=== PATIENT | male | born 1945 | race Caucasian/White ===

== ENCOUNTER 2022-02-06 07:59 | Emergency (ER) | payer MEDICAID ==
[~2022-02-06] VITALS: Ht 160 cm; Wt 81.6 kg
[2022-02-06 08:27] VITALS: BP_SYST 138
--- NOTE | 2022-02-06 08:29 | NUR ---
Triaged pt and placed in waiting room until bed becomes available. Pt c/o having blurred vision and lower back of head pain 5/10 non-radiating intermittent. Pt is A&Ox4. Skin intact. No trauma. VSS. Ambulatory with steady gait. Family dropped pt off from home. Denies n/v. No chest pain and no sob. Has hx of HTN, Hyperlipidemia, and Prostate issues. NKA.
--- NOTE | 2022-02-06 08:58 | NUR ---
ER in triage room examining patient.
--- NOTE | 2022-02-06 09:08 | NUR ---
polysomnography technician in triage room with pt drawing labs.
[2022-02-06 09:32] LABS: ANION GAP 8 (5-15); CALCIUM 8.6 mg/dL (8.4-11.0); CHLORIDE 103 mmol/L (98-107); CREATININE 1.53 mg/dL (0.55-1.30); GLUCOSE 165 mg/dL (70-99); POTASSIUM 3.9 mmol/L (3.5-5.1); SODIUM SERUM 138 mmol/L (136-145); UREA NITROGEN, BLOOD 33 mg/dL (8-21)
[2022-02-06 09:38] LABS: ALANINE AMINOTRANSFERASE 29 U/L (12-78); ALBUMIN 3.3 g/dL (3.4-4.8); ASPARTATE AMINOTRANSFERASE 14 U/L (10-37); TOTAL BILIRUBIN 0.5 mg/dL (0.0-1.0)
[2022-02-06 09:48] LABS: BASOPHILS % (AUTO) 0.7 % (0.0-2.0); EOSINOPHILS # (AUTO) 0.2 K/uL (0.0-0.4); HEMATOCRIT 41.2 % (36-54); LYMPHOCYTES # (AUTO) 1.5 K/uL (1.0-5.5); LYMPHOCYTES % (AUTO) 23.7 % (20.5-51.5); MEAN CORPUSCULAR HEMOGLOBIN 32 pg (27-31); MEAN CORPUSCULAR HGB CONC 34 % (32-36); MEAN CORPUSCULAR VOLUME 95 fL (79.0-98.0); MONOCYTES # (AUTO) 0.6 K/uL (0.0-1.0); MONOCYTES % (AUTO) 8.9 % (1.7-9.3); NEUTROPHILS % (AUTO) 63.7 % (40.0-70.0); PLATELET COUNT (AUTO) 224 K/uL (130-430); RED BLOOD CELL COUNT(AUTO) 4.36 MIL/uL (4.2-6.2); RED CELL DISTRIBUTION WIDTH 13.1 % (9.0-15.0); WHITE BLOOD COUNT (AUTO) 6.3 K/uL (4.8-10.8)
[2022-02-06] MEDS ORDERED: METOCLOPRAMIDE HCL 10 MG TABLET PO ONE (12:15)
[2022-02-06] MEDS ORDERED: KETOROLAC TROMETHAMINE 30 MG VIAL IM ONE (12:15)
[2022-02-06 14:25] VITALS: BP_SYST 138
--- NOTE | 2022-02-06 14:26 | NUR ---
Patient given written and verbal discharge instructions and verbalizes understanding. ER MD discussed with patient the results and treatment provided. Patient in stable condition. ID arm band removed. No Rx given. Patient educated on pain management and to follow up with PMD. Pain Scale 2/10. Opportunity for questions provided and answered. Medication side effect fact sheet provided.
== END 2022-02-06 14:25 | disposition home or self-care (01) ==
LOC: SED 07:59
DX: R51.9 Headache, unspecified (principal); N17.9 Acute kidney failure, unspecified
CPT/HCPCS: 99285; 70496; 80053; 85025; 36415; 70498; 96372; 70450; 76376; J8597; J1885; Q9967

== ENCOUNTER 2022-10-30 15:13 | Inpatient (IN) | payer MEDICAID ==
[~2022-10-30] VITALS: Ht 162.6 cm; Wt 79.8 kg
--- NOTE | 2022-10-30 15:26 | NUR ---
Patient to ER bed 07 to gown for evaluation. Side rails up.
[2022-10-30 15:27] VITALS: BP_SYST 172
--- NOTE | 2022-10-30 15:42 | NUR ---
PT COMES IN FROM HOME WALKING WITH C/O LEFT LOWER ABD PAIN, STATES HE HAS HAD A HERNIA BEFORE. ALSO C/O MILD NAUSEA/NO VOMITTING; NO FEVERS.
--- NOTE | 2022-10-30 15:51 | NUR ---
DR POLLARD IN ROOM FOR EXAM
[2022-10-30 16:18] LABS: BASOPHILS % (AUTO) 0.2 % (0.0-2.0); EOSINOPHILS % (AUTO) 0.3 % (0.0-4.0); HEMATOCRIT 41.5 % (36-54); HEMOGLOBIN 14.1 g/dL (14.0-18.0); LYMPHOCYTES # (AUTO) 0.9 K/uL (1.0-5.5); LYMPHOCYTES % (AUTO) 5.6 % (20.5-51.5); MEAN CORPUSCULAR HEMOGLOBIN 32 pg (27-31); MEAN CORPUSCULAR HGB CONC 34 % (32-36); MEAN CORPUSCULAR VOLUME 94 fL (79.0-98.0); MONOCYTES # (AUTO) 1.4 K/uL (0.0-1.0); MONOCYTES % (AUTO) 8.5 % (1.7-9.3); NEUTROPHILS # (AUTO) 13.9 K/uL (1.8-7.7); NEUTROPHILS % (AUTO) 85.4 % (40.0-70.0); PLATELET COUNT (AUTO) 222 K/uL (130-430); RED BLOOD CELL COUNT(AUTO) 4.39 MIL/uL (4.2-6.2); RED CELL DISTRIBUTION WIDTH 15.1 % (9.0-15.0); WHITE BLOOD COUNT (AUTO) 16.3 K/uL (4.8-10.8)
[2022-10-30 16:21] LABS: BILIRUBIN,URINE NEGATIVE (NEGATIVE); BLOOD, URINE NEGATIVE (NEGATIVE); CLARITY/URINE CLEAR (CLEAR); COLOR,URINE YELLOW (YELLOW); GLUCOSE,URINE NEGATIVE (NEGATIVE); KETONES,URINE NEGATIVE (NEGATIVE); LEUKOCYTE ESTERASE ,URINE TRACE (NEGATIVE); NITRITE, URINE NEGATIVE (NEGATIVE); PROTEIN URINE NEGATIVE (NEGATIVE); UROBILINOGEN,URINE 0.2 (0.2-1.0)
[2022-10-30 16:24] LABS: ANION GAP 11 (5-15); CALCIUM 8.9 mg/dL (8.4-11.0); CHLORIDE 103 mmol/L (98-107); CREATININE 1.76 mg/dL (0.55-1.30); GLUCOSE 142 mg/dL (70-99); UREA NITROGEN, BLOOD 33 mg/dL (8-21)
[2022-10-30 16:28] LABS: ALANINE AMINOTRANSFERASE 22 U/L (12-78); ALBUMIN 3.8 g/dL (3.4-4.8); AMYLASE 106 U/L (0-100); ASPARTATE AMINOTRANSFERASE 17 U/L (10-37); C-REACTIVE PROTEIN QUANT < 0.2 mg/dL (0-0.5); LIPASE 235 U/L (73-393); TOTAL BILIRUBIN 0.5 mg/dL (0.0-1.0)
[2022-10-30 16:51] LABS: BACTERIA,URINE FEW /HPF (None Seen); RBC,URINE 0-3 /HPF (0-3)
[2022-10-30 16:52] LABS: MUCUS,URINE None Seen /LPF (None Seen)
[2022-10-30] MEDS ORDERED: NACL 0.9% 1,000 ML IV ONE (17:15)
[2022-10-30] MEDS ORDERED: PIPERACILLIN/TAZO 3.375 GM in NS 50 ML IV ONE (17:15)
[2022-10-30] MEDS ORDERED: PIPERACILLIN/TAZOBACTAM 3.375 GM/VIAL (ZOSYN) IV ONE (17:28)
[2022-10-30] MEDS ORDERED: MORPHINE 2 MG/ML INJ. SYRINGE IVP ONE (17:45)
[2022-10-30] MEDS ORDERED: iohexoL 350 mgI/mL, 100 ML INFUS..BTL IV ONE (17:48)
[2022-10-30] MEDS ORDERED: AMLO10TA88 PO (17:49)
[2022-10-30] MEDS ORDERED: FINA5TAB11 PO (17:49)
[2022-10-30] MEDS ORDERED: BENA40TA89 PO (17:49)
[2022-10-30] MEDS ORDERED: HYDR100T25 PO (17:49)
[2022-10-30] MEDS ORDERED: HYDR25TA4 PO (17:49)
--- NOTE | 2022-10-30 18:01 | NUR ---
PT DRINKING ORAL CONTRAST, INFORMED TO DRINK OVER 2 HRS.
--- NOTE | 2022-10-30 18:11 | NUR ---
MEDICTAED ORDERED, WILL CONT TO MONITOR. VSS.
--- NOTE | 2022-10-30 18:57 | NUR ---
PT WITH EYES CLOSED IN NAD, RESP EVEN AND UNLABORED, ON RA @95%
--- NOTE | 2022-10-30 19:05 | NUR ---
SHANNON COLLECTED AND SENT TO LAB
--- NOTE | 2022-10-30 19:50 | NUR ---
Admit bed requested Patient will be admitted to care of Dr ANTUNEZ Admitted to TELE unit. Diagnosis LEUKOCYTOSIS INGUINAL ULCER Inpatient (Yes or No) YES Observation (Yes or No) NO Orientation concerns or request close to nursing station (Yes or No) NO Covid Status PENDING On vent or bipap NO Isolation requirements PENDING Needs a sitter NO From Home (Yes or if No enter name of facility) HOME Requires Dialysis (Yes or No) NO Med Rec Completed (Yes of No) NO
--- NOTE | 2022-10-30 20:31 | NUR ---
pt bp elevatd. per md give clonidine 0.1mg and home meds
[2022-10-30] MEDS ORDERED: hydrALAZINE HCL 25 MG TABLET PO ONE (21:00)
[2022-10-30] MEDS ORDERED: amLODIPine BESYLATE 10 MG TABLET PO ONE (21:00)
[2022-10-30] MEDS ORDERED: cloNIDine HCL 0.1 MG TABLET PO PRN (21:00)
--- NOTE | 2022-10-30 22:03 | NUR ---
pt c/o pain. md notified
[2022-10-30] MEDS ORDERED: ACETAMINOPHEN 325 MG TABLET PO PRN (22:15)
[2022-10-30] MEDS ORDERED: HYDROcodone/ACETAMIN 5-325 MG TAB (NORCO/ VICODIN) PO PRN (22:15)
[2022-10-30 23:00] VITALS: BP_SYST 156
[2022-10-30] MEDS ORDERED: LORazepam 2 MG/ML VIAL IVP PRN (23:00)
[2022-10-30] MEDS: D5/0.45 NS 1,000 ML IV SCH (23:00)
[2022-10-30] MEDS ORDERED: ONDANSETRON HCL 4 MG/2 ML VIAL IVP PRN (23:00)
[2022-10-31] VITALS (10 sets, daily range): BP systolic 115–166
--- NOTE | 2022-10-31 05:07 | NUR ---
CONSULTATION PAGED REASON FOR CONSULTATION: LEUKOCYTOSIS WAS CONSULT CALLED? Y PERSON WHO WAS NOTIFIED: NITZA CONSULTING PHYSICIAN: DR. HARTLEY COACH DRIVER SPECIALTY: ID COACH DRIVER PHONE NUMBER: REQUESTING PHYSICIAN: DR. ANTUNEZ
--- NOTE | 2022-10-31 05:08 | NUR ---
CONSULTATION PAGED REASON FOR CONSULTATION: INGUINAL HERNIA WAS CONSULT CALLED? Y PERSON WHO WAS NOTIFIED: NITZA CONSULTING PHYSICIAN: DR. ESPOSITO REPACK ROOM WORKER SPECIALTY: SURGEON REPACK ROOM WORKER PHONE NUMBER: REQUESTING PHYSICIAN: DR. ANTUNEZ
[2022-10-31 06:22] LABS: BASOPHILS % (AUTO) 0.2 % (0.0-2.0); EOSINOPHILS # (AUTO) 0.1 K/uL (0.0-0.4); EOSINOPHILS % (AUTO) 0.4 % (0.0-4.0); HEMATOCRIT 38.7 % (36-54); HEMOGLOBIN 12.9 g/dL (14.0-18.0); LYMPHOCYTES # (AUTO) 1.5 K/uL (1.0-5.5); LYMPHOCYTES % (AUTO) 9.8 % (20.5-51.5); MEAN CORPUSCULAR HEMOGLOBIN 31 pg (27-31); MEAN CORPUSCULAR HGB CONC 33 % (32-36); MEAN CORPUSCULAR VOLUME 94 fL (79.0-98.0); MONOCYTES # (AUTO) 1.9 K/uL (0.0-1.0); MONOCYTES % (AUTO) 12.6 % (1.7-9.3); NEUTROPHILS # (AUTO) 11.8 K/uL (1.8-7.7); PLATELET COUNT (AUTO) 199 K/uL (130-430); RED BLOOD CELL COUNT(AUTO) 4.13 MIL/uL (4.2-6.2); RED CELL DISTRIBUTION WIDTH 14.5 % (9.0-15.0); WHITE BLOOD COUNT (AUTO) 15.3 K/uL (4.8-10.8)
[2022-10-31 06:32] LABS: ALANINE AMINOTRANSFERASE 1 U/L (12-78); ALBUMIN 3.1 g/dL (3.4-4.8); ANION GAP 9 (5-15); ASPARTATE AMINOTRANSFERASE 14 U/L (10-37); CALCIUM 8.3 mg/dL (8.4-11.0); CHLORIDE 103 mmol/L (98-107); GLUCOSE 102 mg/dL (70-99); PHOSPHORUS 2.2 mg/dL (2.7-4.5); TOTAL BILIRUBIN 0.9 mg/dL (0.0-1.0); UREA NITROGEN, BLOOD 22 mg/dL (8-21)
[2022-10-31] MEDS: HYDROcodone/ACETAMIN 10-325 MG TAB PO PRN (06:32)
[2022-10-31] MEDS: lisinopriL 20 MG TABLET PO SCH ×2 (10:41→21:39)
[2022-10-31] MEDS: HYDROCHLOROTHIAZIDE 25 MG TABLET (HCTZ) PO SCH (10:41)
[2022-10-31] MEDS: FINASTERIDE 5 MG TABLET (PROSCAR) PO SCH (10:41)
[2022-10-31] MEDS: amLODIPine BESYLATE 10 MG TABLET PO SCH (10:42)
[2022-10-31] MEDS: D5/0.45 NS 1,000 ML IV SCH ×2 (10:43→14:40)
[2022-10-31] MEDS: hydrALAZINE HCL 25 MG TABLET PO SCH ×3 (10:43→21:34)
[2022-10-31] MEDS: metroNIDAZOLE 250 mg/NS 50 ML IV SCH ×2 (14:39→21:32)
--- NOTE | 2022-10-31 20:00 | NUR ---
RECIEVED PT FROM am NURSE. PT IS AOX4, BRP. HAS PAINFUL URINATION, WITH LOWER ABDOMINAL PAIN. PT IS AWAITING TO SEE IF HE IS A CANDIDATE FOR SX PER MD. HR SUSTAINED IN 100S. WILL CONTINUE TO MONITOR. WILL ENDORSE TO THE NURSE
[2022-10-31] MEDS: PIPERACILLIN/TAZO 3.375/DEX-IS 50 ML IV SCH (22:51)
[2022-11-01] MEDS: D5/0.45 NS 1,000 ML IV SCH ×3 (03:07→21:38)
[2022-11-01] MEDS: metroNIDAZOLE 250 mg/NS 50 ML IV SCH ×3 (06:26→21:39)
[2022-11-01 07:44] LABS: BASOPHILS % (AUTO) 0.3 % (0.0-2.0); EOSINOPHILS # (AUTO) 0.1 K/uL (0.0-0.4); EOSINOPHILS % (AUTO) 0.5 % (0.0-4.0); HEMATOCRIT 39.6 % (36-54); HEMOGLOBIN 13.4 g/dL (14.0-18.0); LYMPHOCYTES # (AUTO) 1.3 K/uL (1.0-5.5); LYMPHOCYTES % (AUTO) 8.7 % (20.5-51.5); MEAN CORPUSCULAR HEMOGLOBIN 32 pg (27-31); MEAN CORPUSCULAR HGB CONC 34 % (32-36); MEAN CORPUSCULAR VOLUME 93 fL (79.0-98.0); MONOCYTES # (AUTO) 1.6 K/uL (0.0-1.0); MONOCYTES % (AUTO) 10.9 % (1.7-9.3); NEUTROPHILS # (AUTO) 11.6 K/uL (1.8-7.7); NEUTROPHILS % (AUTO) 79.6 % (40.0-70.0); PLATELET COUNT (AUTO) 207 K/uL (130-430); RED BLOOD CELL COUNT(AUTO) 4.24 MIL/uL (4.2-6.2); RED CELL DISTRIBUTION WIDTH 14.4 % (9.0-15.0); WHITE BLOOD COUNT (AUTO) 14.6 K/uL (4.8-10.8)
[2022-11-01 07:58] LABS: ANION GAP 7 (5-15); C-REACTIVE PROTEIN QUANT 13.5 mg/dL (0-0.5); CALCIUM 8.4 mg/dL (8.4-11.0); CHLORIDE 100 mmol/L (98-107); CREATININE 1.39 mg/dL (0.55-1.30); GLUCOSE 118 mg/dL (70-99); UREA NITROGEN, BLOOD 18 mg/dL (8-21)
[2022-11-01 08:23] VITALS: BP_SYST 117
[2022-11-01] MEDS: hydrALAZINE HCL 25 MG TABLET PO SCH ×3 (08:33→21:37)
[2022-11-01] MEDS: PIPERACILLIN/TAZO 3.375/DEX-IS 50 ML IV SCH ×3 (08:33→22:23)
[2022-11-01] MEDS: amLODIPine BESYLATE 10 MG TABLET PO SCH (08:34)
[2022-11-01] MEDS: FINASTERIDE 5 MG TABLET (PROSCAR) PO SCH (08:34)
[2022-11-01] MEDS: HYDROCHLOROTHIAZIDE 25 MG TABLET (HCTZ) PO SCH (08:34)
[2022-11-01] MEDS: lisinopriL 20 MG TABLET PO SCH ×2 (08:35→21:36)
[2022-11-01 08:55] LABS: ERYTHROCYTE SEDIMENTATION RATE 53 MM/HR (0-15)
[2022-11-01] MEDS ORDERED: TAMSULOSIN HCL 0.4 MG CAP PO ONE (11:00)
[2022-11-01 12:15] VITALS: BP_SYST 117
--- NOTE | 2022-11-01 12:29 | NUR ---
Dietitian Recommendations * Continue regular diet * Consider Logan FELIX, for sepsis GS, MPH, RD Please refer to RD Assessment for further details. Thanks! Addendum: 11/01/22 at [address] Amended: Links added.
[2022-11-01 14:02] VITALS: BP_SYST 111
[2022-11-01 17:04] VITALS: BP_SYST 128
[2022-11-01 19:55] VITALS: BP_SYST 100; BP_SYST 132
--- NOTE | 2022-11-01 19:55 | NUR ---
RECEIVED PT LYING IN BED. FAMILY MEMBER AT BEDSIDE, PT IS AOX4, BRP. NO C/O PAIN ATT, IVF ONGOING TO LAC W/O INFILTRATION, WILL CONTINUE WITH POC
--- NOTE | 2022-11-01 20:35 | NUR ---
RECEIVED A CALL FROM DR. VAIBHAV GONZALEZ ORDERED CBC IN AM AND TO LET DR ANTUNEZ KNOW HE DOES NOT NEED TO CONSULT WITH PT.
[2022-11-02 01:02] VITALS: BP_SYST 121
[2022-11-02] MEDS: metroNIDAZOLE 250 mg/NS 50 ML IV SCH ×3 (05:31→22:54)
[2022-11-02] MEDS: D5/0.45 NS 1,000 ML IV SCH ×2 (06:20→12:56)
[2022-11-02] MEDS: PIPERACILLIN/TAZO 3.375/DEX-IS 50 ML IV SCH (06:25)
[2022-11-02 06:36] LABS: BASOPHILS % (AUTO) 0.4 % (0.0-2.0); EOSINOPHILS # (AUTO) 0.3 K/uL (0.0-0.4); EOSINOPHILS % (AUTO) 2.8 % (0.0-4.0); HEMATOCRIT 39.1 % (36-54); HEMOGLOBIN 13.1 g/dL (14.0-18.0); LYMPHOCYTES # (AUTO) 1.3 K/uL (1.0-5.5); LYMPHOCYTES % (AUTO) 13.1 % (20.5-51.5); MEAN CORPUSCULAR HEMOGLOBIN 32 pg (27-31); MEAN CORPUSCULAR HGB CONC 34 % (32-36); MEAN CORPUSCULAR VOLUME 94 fL (79.0-98.0); MONOCYTES # (AUTO) 1.4 K/uL (0.0-1.0); MONOCYTES % (AUTO) 13.7 % (1.7-9.3); PLATELET COUNT (AUTO) 210 K/uL (130-430); RED BLOOD CELL COUNT(AUTO) 4.15 MIL/uL (4.2-6.2); RED CELL DISTRIBUTION WIDTH 14.9 % (9.0-15.0); WHITE BLOOD COUNT (AUTO) 10.1 K/uL (4.8-10.8)
--- NOTE | 2022-11-02 06:40 | NUR ---
PT LYING IN BED. PT IS AOX4, BRP but did not get oob during shift, . NO C/O PAIN ATT, IVF d5 1/2ns at 100 ONGOING TO [facility] W/O INFILTRATION, NO CHANGES DURING SHIFT, SAFETY PREC MAINTAINED, WILL ENDORSE TO AM SHIFT
[2022-11-02 06:58] LABS: ERYTHROCYTE SEDIMENTATION RATE 27 MM/HR (0-15)
--- NOTE | 2022-11-02 07:15 | NUR ---
OPENING NOTE RECEIVED SBAR FROM NIGHT RN. PATIENT IN BED, RESPIRATIONS EVEN, NON LABORED, BED IN LOW AND LOCKED POSITION CALL LIGHT WITHIN REACH. BED ALARM ON
[2022-11-02 07:24] LABS: ALANINE AMINOTRANSFERASE 17 U/L (12-78); ALBUMIN 2.7 g/dL (3.4-4.8); ANION GAP 6 (5-15); ASPARTATE AMINOTRANSFERASE 14 U/L (10-37); C-REACTIVE PROTEIN QUANT 8.2 mg/dL (0-0.5); CALCIUM 8.1 mg/dL (8.4-11.0); CHLORIDE 102 mmol/L (98-107); GLUCOSE 103 mg/dL (70-99); PHOSPHORUS 2.6 mg/dL (2.7-4.5); TOTAL BILIRUBIN 0.6 mg/dL (0.0-1.0); UREA NITROGEN, BLOOD 21 mg/dL (8-21)
[2022-11-02 08:00] VITALS: BP_SYST 103
[2022-11-02] MEDS: FINASTERIDE 5 MG TABLET (PROSCAR) PO SCH (08:57)
[2022-11-02] MEDS: TAMSULOSIN HCL 0.4 MG CAP PO SCH (08:57)
[2022-11-02] MEDS: hydrALAZINE HCL 25 MG TABLET PO SCH ×3 (08:59→22:52)
[2022-11-02] MEDS: HYDROCHLOROTHIAZIDE 25 MG TABLET (HCTZ) PO SCH (08:59)
[2022-11-02] MEDS: amLODIPine BESYLATE 10 MG TABLET PO SCH (09:00)
[2022-11-02] MEDS: lisinopriL 20 MG TABLET PO SCH ×2 (09:00→22:53)
[2022-11-02 12:58] VITALS: BP_SYST 126
--- NOTE | 2022-11-02 13:29 | NUR ---
nurse note patient in bed, respirations even, non labored, bed in low and locked position, call light within reach. Denies pain or discomfort
--- NOTE | 2022-11-02 14:33 | NUR ---
pharmacy spoke with Carmel in the pharmacy regarding rate of Zosyn. Per Carmel disregard the rate on the label and she will put in new rate in the computer
[2022-11-02] MEDS ORDERED: PIPERACILLIN/TAZOBACTAM 3.375 GM/ D5W 50 ML IV ONE ×2 (15:00)
--- NOTE | 2022-11-02 15:21 | NUR ---
O2 on room air patient saturation is 88-89% Addendum: 11/02/22 at 1638 by Shaquille Truong RN disregard above note. entered on wrong patient
--- NOTE | 2022-11-02 16:39 | NUR ---
nurse note patient in bed, respirations even, non labored, bed in low and locked position call light within reach. no signs of distress noted.
[2022-11-02 16:59] VITALS: BP_SYST 119
--- NOTE | 2022-11-02 19:21 | NUR ---
closing note Provided SBAR to night RN. Patient in bed, respirations even, non labored, bed in low and locked position, call light within reach. IVF's running as ordered. Endorsed care to night RN.
[2022-11-02 20:00] VITALS: BP_SYST 145
[2022-11-02] MEDS: PIPERACILLIN/TAZOBACTAM 3.375 GM/ D5W 50 ML IV SCH ×2 (22:55)
[2022-11-02] MEDS: HYDROcodone/ACETAMIN 10-325 MG TAB PO PRN (23:18)
[2022-11-03 00:17] VITALS: BP_SYST 135
[2022-11-03] MEDS: D5/0.45 NS 1,000 ML IV SCH (05:31)
[2022-11-03] MEDS: PIPERACILLIN/TAZOBACTAM 3.375 GM/ D5W 50 ML IV SCH ×2 (05:32)
[2022-11-03] MEDS: metroNIDAZOLE 250 mg/NS 50 ML IV SCH (05:32)
[2022-11-03 06:34] LABS: BASOPHILS # (AUTO) 0.1 K/uL (0.0-0.2); BASOPHILS % (AUTO) 0.9 % (0.0-2.0); EOSINOPHILS # (AUTO) 0.4 K/uL (0.0-0.4); EOSINOPHILS % (AUTO) 5.7 % (0.0-4.0); HEMATOCRIT 38.4 % (36-54); HEMOGLOBIN 12.9 g/dL (14.0-18.0); LYMPHOCYTES # (AUTO) 1.5 K/uL (1.0-5.5); LYMPHOCYTES % (AUTO) 23.1 % (20.5-51.5); MEAN CORPUSCULAR HEMOGLOBIN 32 pg (27-31); MEAN CORPUSCULAR HGB CONC 34 % (32-36); MEAN CORPUSCULAR VOLUME 94 fL (79.0-98.0); MONOCYTES # (AUTO) 0.9 K/uL (0.0-1.0); MONOCYTES % (AUTO) 14.8 % (1.7-9.3); NEUTROPHILS # (AUTO) 3.5 K/uL (1.8-7.7); NEUTROPHILS % (AUTO) 55.5 % (40.0-70.0); PLATELET COUNT (AUTO) 225 K/uL (130-430); RED CELL DISTRIBUTION WIDTH 14.7 % (9.0-15.0); WHITE BLOOD COUNT (AUTO) 6.3 K/uL (4.8-10.8)
[2022-11-03 06:43] LABS: ANION GAP 6 (5-15); C-REACTIVE PROTEIN QUANT 3.8 mg/dL (0-0.5); CALCIUM 8.4 mg/dL (8.4-11.0); CHLORIDE 103 mmol/L (98-107); CREATININE 1.46 mg/dL (0.55-1.30); GLUCOSE 92 mg/dL (70-99); UREA NITROGEN, BLOOD 20 mg/dL (8-21)
[2022-11-03 06:51] LABS: ERYTHROCYTE SEDIMENTATION RATE 42 MM/HR (0-15)
--- NOTE | 2022-11-03 07:20 | NUR ---
Report received from pm nurse. Patient resting quietly in bed. No noted distress. Denies pain or needs. Call light in reach. IV in place and patent. Sinus rhythm on telemetry.
[2022-11-03 08:49] VITALS: BP_SYST 108
[2022-11-03] MEDS: TAMSULOSIN HCL 0.4 MG CAP PO SCH (08:55)
[2022-11-03] MEDS: FINASTERIDE 5 MG TABLET (PROSCAR) PO SCH (08:55)
[2022-11-03 08:56] VITALS: BP_SYST 131
[2022-11-03] MEDS: lisinopriL 20 MG TABLET PO SCH (08:58)
[2022-11-03] MEDS: hydrALAZINE HCL 25 MG TABLET PO SCH (08:59)
[2022-11-03] MEDS: HYDROCHLOROTHIAZIDE 25 MG TABLET (HCTZ) PO SCH (08:59)
[2022-11-03] MEDS: amLODIPine BESYLATE 10 MG TABLET PO SCH (08:59)
[2022-11-03 12:21] VITALS: BP_SYST 137
[2022-11-03] MEDS ORDERED: CIPR500T5 PO (12:21)
[2022-11-03] MEDS ORDERED: TAMS0.4C96 PO (12:21)
[2022-11-03] MEDS ORDERED: METR-154 PO (12:21)
--- NOTE | 2022-11-03 14:00 | NUR ---
Discharge pending. Awaiting family for transport.
[2022-11-03 14:57] VITALS: BP_SYST 118
--- NOTE | 2022-11-03 16:10 | NUR ---
Discharge home with family. Instructions given/Understanding verbalized. Addendum: 11/03/22 at 1615 by Twenty two LETICIA Denney RN Telemetry returned to maintenance tech. Addendum: 11/03/22 at 1616 by Cassie two LETICIA Denney RN IV discontinued.
== END 2022-11-03 16:50 | disposition home or self-care (01) | DRG 720 ==
LOC: SED 15:13 → STU 17:41
PROVIDERS: ADMIT Preventive Medicine Preventive Medicine/Occupational Environmental Medicine; ATTEND Preventive Medicine Preventive Medicine/Occupational Environmental Medicine
DX: A41.9 Sepsis, unspecified organism (principal); N17.0 Acute kidney failure with tubular necrosis; E87.20 Acidosis, unspecified; K55.9 Vascular disorder of intestine, unspecified; E83.39 Other disorders of phosphorus metabolism; E87.1 Hypo-osmolality and hyponatremia; N39.0 Urinary tract infection, site not specified; D64.9 Anemia, unspecified; E83.52 Hypercalcemia; E88.09 Other disorders of plasma-protein metabolism, not elsewhere classified; I10 Essential (primary) hypertension; N40.0 Benign prostatic hyperplasia without lower urinary tract symptoms; R73.9 Hyperglycemia, unspecified; Z20.822 Contact with and (suspected) exposure to COVID-19; K40.90 Unilateral inguinal hernia, without obstruction or gangrene, not specified as recurrent
CPT/HCPCS: 36415; 71045; 76376; 80048; 80053; 81000; 82150; 83605; 83690; 83735; 84100; 85025; 85651-TC; 86140; 87040; 87086; 96365; 96375; 99291; G0378; J2270; J2543; J3490; J7060; Q9967

== ENCOUNTER 2023-06-07 12:38 | Emergency (ER) | payer MEDICAID ==
[~2023-06-07] VITALS: Ht 167.6 cm; Wt 84.8 kg
[~2023-06-07 12:38] MED LIST: AMLO10TA88 PO; BENA40TA89 PO; CIPR500T5 PO; FINA5TAB11 PO; FLUORESCEIN SODIUM 1 MG OPHTHALMIC STRIP OP ONE; HYDR100T25 PO; HYDR25TA4 PO; METR-154 PO; PROPARACAINE (OPTHANINE 0.5%) 15 ML DROPS OP ONE; TAMS0.4C96 PO
[2023-06-07 12:49] VITALS: BP_SYST 185; PULSE 98; RESP 22; TEMP 98.3; O2SAT 98
[2023-06-07] MEDS ORDERED: OFLO5DRO6 EACH EYE (12:57)
[2023-06-07] MEDS ORDERED: TRAM50TA2 PO (12:57)
[2023-06-07 13:27] VITALS: BP_SYST 139; PULSE 74; RESP 16; TEMP 98.2; O2SAT 97
== END 2023-06-07 13:21 | disposition home or self-care (01) ==
LOC: SED 12:38
DX: S05.02XA Injury of conjunctiva and corneal abrasion without foreign body, left eye, initial encounter (principal); S05.01XA Injury of conjunctiva and corneal abrasion without foreign body, right eye, initial encounter; H10.213 Acute toxic conjunctivitis, bilateral; I10 Essential (primary) hypertension; E78.5 Hyperlipidemia, unspecified; X58.XXXA Exposure to other specified factors, initial encounter; Y93.89 Activity, other specified; Y92.89 Other specified places as the place of occurrence of the external cause; Y99.8 Other external cause status
CPT/HCPCS: 99283